=== PATIENT | female | born 1975 | race Two or more races ===

== ENCOUNTER 2017-01-31 06:18 | Day surgery (SDC) | payer OTHER ==
[2017-01-26 08:35] VITALS: BMI 26.6
[2017-01-31] MEDS ORDERED: ROPIVACAINE HCL 0.5% 30ML VIAL ONE (07:26)
[2017-01-31] MEDS ORDERED: MIDAZOLAM HCL 2 MG/2 ML SINGLE DOSE VIAL ONE ×2 (07:32)
[2017-01-31] MEDS ORDERED: PROPOFOL 20 ML ONE (07:33)
[2017-01-31] MEDS ORDERED: SUCCINYLCHOLINE CHLORIDE 200 MG/10 ML VIAL ONE (07:33)
--- NOTE | 2017-01-31 08:05 | HP ---
[facility] - Chief Complaint Chief Complaint: right knee pain History Source: Patient - Past Medical History Allergies/Adverse Reactions: Allergies Allergy/AdvReac Type Severity Reaction Status Date / Time Penicillins Allergy Intermediate Rash Verified 01/31/17 07:20 ...LMP: 01/15/17 - Current Medications Current Medications: Home Medications Medication Instructions Recorded 5-Hydroxytryptophan (5-Htp) [5-Htp] 200 mg PO HS 01/26/17 Chromium [Chromium Picolinate (Nf)] 400 mcg PO BID 01/26/17 Diethylpropion HCl 25 mg PO TID 01/26/17 Topiramate 100 mg PO DAILY 01/26/17 [facility] Physical Exam - Physical Examination Vital Signs: Vital Signs Period Temp Pulse Resp BP Sys/Alberto Pulse Ox Last 24 Hr 97.8 F 79 20 128/85 100 Extremities: Other (+ renetta right knee) [facility] Impression/Plan - Impression/Plan Impression: R ACL TEAR Operative Procedure: R ACL RECON Date to be Performed: 01/31/17
[2017-01-31] MEDS ORDERED: ceFAZolin SODIUM 1 GM VIAL IVPB ONE (08:17)
[2017-01-31] MEDS ORDERED: ceFAZolin SODIUM 1 GM VIAL ONE (08:18)
[2017-01-31] MEDS ORDERED: DEXAMETHASONE SOD PHOSPHATE 4 MG/1 ML VIAL ONE (08:22)
--- NOTE | 2017-01-31 09:33 | OP ---
Operative Note - Note: Operative Date: 01/31/17 ([facility]) Pre-Operative Diagnosis: right knee internal derangement Operation: right knee arthroscopy with ACL reconstruction using graftlink allograft, PMM Post-Operative Diagnosis: Same as Pre-op Surgeon: Jaskaran Gonzalez Creative Services Intern: Tyrone Huitron Anesthesiologist/NUTRITION SERVICES AIDE: Lotus Rasmussen Anesthesia: General, Local Specimens Removed: shavings Estimated Blood Loss (mls): 5 Operative Report Dictated: Yes
[2017-01-31] MEDS ORDERED: ONDANSETRON 4 MG/2 ML VIAL IVPUSH PRN (09:50)
[2017-01-31] MEDS ORDERED: oxyCODONE HCL 5 MG TABLET PO PRN (09:50)
[2017-01-31] MEDS ORDERED: LACTATED RINGERS SOLUTION 1,000 ML IV SCH (10:00)
[2017-01-31 11:42] VITALS: TEMP 98.2
[2017-01-31 13:17] VITALS: BP 134/78; PULSE 76
--- NOTE | 2017-02-01 09:40 | OP ---
DATE OF OPERATION: 01/31/2017 PREOPERATIVE DIAGNOSIS: Right anterior cruciate ligament tear. POSTOPERATIVE DIAGNOSES: 1. Right anterior cruciate ligament tear. 2. Bucket-handle tear, medial meniscus. PROCEDURE: Arthroscopy, right knee, with anterior cruciate ligament reconstruction with graft link and partial medial meniscectomy. SURGICAL ATTENDING: Jaskaran Gonzalez MD RETARDER OPERATOR: CATRACHO Jasso ANESTHESIA: Spinal and regional. CLOSURE: A graft link with appropriate buttons and 3-0 nylon for the skin. ESTIMATED BLOOD LOSS: Negligible. COMPLICATIONS: None. CONDITION: Recovery room in stable condition. DESCRIPTION OF OPERATIVE PROCEDURE: Patient taken to the operating room on January 31, 2017. Spinal and regional anesthesia was administered by the anesthesiologist. IV Kefzol was administered prophylactically prior to the case. Right lower extremity was prepped and draped in the usual sterile fashion. The superomedial and the medial and lateral infrapatellar portals were made with 15 blade, followed by blunt trocars. Outflow portal was superomedially, working portals inferomedially, and the scope was inferolaterally. The scope was placed up into the pouch and visualized to be clean. The medial and lateral gutters were visualized to be clean. The undersurface of the patella and trochlea were visualized to be intact. With valgus stress on the knee, the medial compartment was entered. The medial meniscus was found to have a complex bucket-handle tear. Its anterior and posterior limbs were cut, and a portion of the meniscus was debrided. The residual meniscus also was torn. This was again debrided back to smooth and stable meniscal tissues using a meniscal biter and arthroscopic shaver. In the figure-4 position, lateral compartment was entered. The lateral meniscus was visualized, probed, and found to be intact. The lateral femoral condyle was run and found to be intact as was the lateral tibial plateau. At 90 degrees, the ACL was found to be completely torn. Its stump was debrided using the shaver. A notchplasty was then performed using the bur, shaver, and the ArthroCare device sufficient with a knife to perform the procedure. Using the oxru-fsc-wps guide, a tunnel was drilled from inside out using a FlipCutter on the posterior aspect of the notch to depth of approximately 20-25 mm. All bone fragments were removed. A shuttle fiber stick suture was placed down the tunnel and delivered out of the portal. Next, the tibial tunnel was drilled retrograde as well using a FlipCutter just anterior to the PCL. The amount of bone was small. We did a full-thickness tunnel, exiting the cortex. All bone fragments were debrided. The shuttle suture was then grasped through the tibial tunnel and delivered outside the anteromedial proximal tibia. The shuttle suture was used to shuttle the graft into the knee until the button engaged the anterolateral cortex of the femur. The toggle suture was then used to pull the graft up into the tunnel and bottom it out. Range of motion revealed good crossing of the PCL and no impingement on the notch. The knee was cycled multiple times to remove any creep from the graft. The large button was placed through the sutures of the graft link on the anteromedial proximal tibia, and the toggle sutures were used to snug the button to the tibial cortex. This was done in extension. The knee was taken through a range of motion from full extension to full flexion, and good crossing of the PCL. Negative Sue, negative pivot shift, negative anterior drawer. Sutures were tied and cut on both sides. The knee was irrigated with copious amounts of irrigation. The portals were closed in 3-0 nylon. A sterile pressure dressing was applied, followed by a knee immobilizer. The patient was awakened from anesthesia and transferred to recovery room in stable condition. No complications. Estimated blood loss: Negligible. Mario [id number]
--- NOTE | 2017-02-01 16:52 | PATH ---
Surgical Pathology Report Patient Name: CHEL KEY [facility]. Rec. #: [id number] /Age/Gender: 1975 (Age: 41) / F Account: [id number] Location: [facility] SURGICAL Taken: 01/31/2017 Received: 01/31/2017 Reported: 02/01/2017 Physicians: Jaskaran Gonzalez M.D. Specimen(s) Received RIGHT KNEE SHAVINGS Clinical History Right ACL tear Final Diagnosis KNEE SHAVINGS, RIGHT, ACL REPAIR: BENIGN CARTILAGE, SYNOVIUM, FIBROADIPOSE TISSUE AND BONE. Electronically Signed Mandi Darby M.D. Gross Description Received in formalin, labeled "right knee shavings," is a 5.5 x 4.3 x 0.7 cm. aggregate of rai-yellow soft tissue fragments. A claims customer service representative portion is submitted in one cassette. /01/31/201701/31/2017
== END 2017-01-31 12:30 | disposition home or self-care (01) ==
LOC: JASU-SURG 06:18
PROVIDERS: ATTEND Orthopaedic Surgery
PROC: 0SBC4ZZ Excision of Right Knee Joint, Percutaneous Endoscopic Approach (ICD-10-PCS; 2017-01-31)
PROC: 0MRN4JZ Replacement of Right Knee Bursa and Ligament with Synthetic Substitute, Percutaneous Endoscopic Approach (ICD-10-PCS; principal; 2017-01-31 08:00)
DX: S83.511A Sprain of anterior cruciate ligament of right knee, initial encounter (principal); S83.211A Bucket-handle tear of medial meniscus, current injury, right knee, initial encounter; X58.XXXA Exposure to other specified factors, initial encounter; Y93.9 Activity, unspecified; Y92.9 Unspecified place or not applicable; Y99.9 Unspecified external cause status
CPT/HCPCS: 84703; 88304-TC; 94760